=== PATIENT | male | born 1980 | race Caucasian/White ===

== ENCOUNTER 2022-11-24 08:05 | Day surgery (SDC) | payer OTHER ==
[~2022-11-24] VITALS: Ht 167.6 cm; Wt 85.3 kg
[2022-11-24] MEDS ORDERED: MIDAZOLAM 2 MG/2 ML VIAL ONE (09:21)
[2022-11-24] MEDS ORDERED: fentaNYL citrate 0.05 MG/ML VIAL ONE (09:21)
[2022-11-24] MEDS ORDERED: MIDAZOLAM 2 MG/2 ML VIAL IVP ONE (10:25)
== END 2022-11-24 10:52 | disposition home or self-care (01) ==
LOC: MDS 08:05 → MMU 08:05 → MDS 10:52
PROVIDERS: ATTEND Internal Medicine Gastroenterology
DX: R10.13 Epigastric pain (principal); K22.81 Esophageal polyp; R14.0 Abdominal distension (gaseous); I10 Essential (primary) hypertension; Z79.899 Other long term (current) drug therapy; Z20.822 Contact with and (suspected) exposure to COVID-19
CPT/HCPCS: 36415; 43239; 86677; 87426; J2250; J3010